=== PATIENT | male | born 1995 | race African-American/Black ===

== ENCOUNTER 2019-03-29 11:37 | Emergency (ER) | payer BC ==
[~2019-03-29] VITALS: Ht 182.9 cm; Wt 93.2 kg
[2019-03-29 11:57] VITALS: BP 135/52
--- NOTE | 2019-03-29 13:09 | NUR ---
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
--- NOTE | 2019-03-29 13:29 | NUR ---
PT TO ROOM FROM [place]. CHANGED INTO GOWN AND URINE SENT TO LAB. CALL LIGHT W/I REACH, VSS.
[2019-03-29 13:46] LABS: MICROSCOPIC NOT IND
--- NOTE | 2019-03-29 15:20 | NUR ---
LATE ENTRY : Patient/Caregiver given discharge instructions and they have confirmed that they understand the instructions. Patient ambulatory with steady gait.
== END 2019-03-29 15:21 | disposition home or self-care (01) ==
LOC: ED 14:20
DX: I86.1 Scrotal varices (principal); K40.90 Unilateral inguinal hernia, without obstruction or gangrene, not specified as recurrent
CPT/HCPCS: 76870; 81003; 99284